=== PATIENT | male | born 2000 | race Caucasian/White ===

== ENCOUNTER 2018-10-05 09:23 | Day surgery (SDC) | payer OTHER ==
[~2018-10-05] VITALS: Ht 170.2 cm; Wt 104.3 kg
[2018-10-05 10:18] LABS: BASOPHILS % (AUTO) 0.4 % (0.0-2.0); EOSINOPHILS # (AUTO) 0.3 K/uL (0-0.4); EOSINOPHILS % (AUTO) 4.3 % (0.0-4.0); HEMATOCRIT 44.4 % (36-52); HEMOGLOBIN 15.2 g/dL (12.0-18.0); LYMPHOCYTES # (AUTO) 2.4 K/uL (2.0-11.5); LYMPHOCYTES % (AUTO) 37.1 % (20.5-51.1); MEAN CORPUSCULAR HEMOGLOBIN 31 pg (27-31); MEAN CORPUSCULAR HGB CONC 34 g/dL (33-37); MEAN CORPUSCULAR VOLUME 91.1 fL (80-94); MONOCYTES # (AUTO) 0.8 K/uL (0.8-1.0); MONOCYTES % (AUTO) 12.1 % (1.7-9.3); NEUTROPHILS % (AUTO) 46.1 % (42.2-75.2); PLATELET COUNT (AUTO) 187 K/uL (140-450); RED BLOOD CELL COUNT(AUTO) 4.87 MIL/uL (4.20-6.10); RED CELL DISTRIBUTION WIDTH 12.9 % (11.6-13.7); WHITE BLOOD COUNT (AUTO) 6.5 K/uL (4.5-11.0)
[2018-10-05 11:16] LABS: PROTHROMBIN TIME 10.2 secs (10.8-13.4)
[2018-10-05] MEDS ORDERED: LIDOCAINE 2% 1000 MG/50 ML VIAL INJ ONE (11:31)
[2018-10-05] MEDS ORDERED: fentaNYL 0.05 MG/ML VIAL ONE (12:28)
[2018-10-05] MEDS ORDERED: MORPHINE SULFATE 4 MG/ML SYR IVP PRN (12:45)
== END 2018-10-05 13:45 | disposition home or self-care (01) ==
LOC: MOR 09:23 → MMU 09:24 → MOR 13:45
PROVIDERS: ATTEND Internal Medicine Gastroenterology
DX: K76.0 Fatty (change of) liver, not elsewhere classified (principal); R74.8 Abnormal levels of other serum enzymes; E66.9 Obesity, unspecified
CPT/HCPCS: 36415; 47000; 76942; 85025; 85610; 85730; 88307; 88313; J2001; J2270; J3010; Q0092